=== PATIENT | male | born 1990 ===

== ENCOUNTER 2018-02-19 13:25 | Emergency (ER) | payer SELFPAY ==
[2018-02-19 13:41] VITALS: BP 155/89
--- NOTE | 2018-02-19 13:51 | UC ---
Abdominal Pain Male HPI - HPI Summary HPI Summary: 27 yo male presents with "tightness" to LLQ for the last 3-4 days. He tells me that he has a history of cerebral palsy and goes to the gym quite often to strengthen. Over the last 3-4 days has noticed some intermittent "tightness" to his LLQ with certain activities - especially after going to the gym. He has not taken anything OTC for his discomfort. Having a daily BM that has been regular for him - does not change his pain. He has been feeling well otherwise and denies fever, chills, recent illness, n/v/d/c, dysuria, testicular pain, or specific injury. Has not seen a PCP in over 10 years. He tells me that as a child he had may issues with abdominal hernias. - History of Current Complaint Chief Complaint: UCAbdominalPain Stated Complaint: STOMACH PAIN Time Seen by Provider: 02/19/18 13:51 Hx Obtained From: Patient Onset/Duration: Gradual Onset Severity Initially: Mild Severity Currently: Mild Pain Intensity: 1 Pain Scale Used: 0-10 Numeric - Allergies/Home Medications Allergies/Adverse Reactions: Allergies Allergy/AdvReac Type Severity Reaction Status Date / Time No Known Allergies Allergy Verified 02/19/18 13:41 Home Medications: Home Medications NK [No Home Medications Reported] 02/19/18 [History Confirmed 02/19/18] PMH/Surg Hx/FS Hx/Imm Hx - Additional Past Medical History Additional PMH: Cerebral palsy - Surgical History Surgical History: Yes Surgery Procedure, Year, and Place: 6 year old - tendons lengthened in legs. addenoidectomy - Family History Known Family History: Positive: None - Social History Occupation: Employed Full-time Lives: With Family Alcohol Use: Rare Substance Use Type: Marijuana Smoking Status (MU): Former Smoker When Did the Patient Quit Smoking/Using Tobacco: 2016 Review of Systems All Other Systems Reviewed And Are Negative: Yes Constitutional: Positive: Negative Skin: Positive: Negative Respiratory: Positive: Negative Cardiovascular: Positive: Negative Gastrointestinal: Positive: Abdominal Pain Genitourinary: Positive: Negative Motor: Positive: Negative Neurovascular: Positive: Negative Neurological: Positive: Negative Psychological: Positive: Negative Physical Exam - Summary Physical Exam Summary: GENERAL: NAD. WDWN. No pain distress. SKIN: No rashes, sores, lesions, or open wounds. NECK: Supple. Nontender. No lymphadenopathy. CHEST: CTAB. No r/r/w. No accessory muscle use. Breathing comfortably and in no distress. CV: RRR. Without m/r/g. Pulses intact. Cap refill <2seconds ABDOMEN: Soft. NTTP. No distention or guarding. No CVA tenderness. Bowel sounds present NEURO: Alert. PSYCH: Age appropriate behavior. Triage Information Reviewed: Yes Vital Signs: Initial Vital Signs Temp 100.2 F 02/19/18 13:31 Pulse 72 02/19/18 13:31 Resp 16 02/19/18 13:31 BP 155/89 02/19/18 13:31 Pulse Ox 100 02/19/18 13:31 Laboratory Tests 02/19/18 13:50 POC Urine Color Yellow POC Urine Clarity Clear POC Urine pH 7.0 POC Ur Specif [place] 1.015 POC Urine Protein Negative POC Ur Glucose (UA) Negative POC Urine Ketones Negative POC Urine Blood Negative POC Urine Nitrite Negative POC Urine Bilirubin Negative POC Urine Urobilinogen 0.2 POC U Leukocyte Esteras Negative Vital Signs: Temp Pulse Resp BP Pulse Ox 99.8 F 72 16 155/89 100 02/19/18 14:03 02/19/18 13:31 02/19/18 13:31 02/19/18 13:31 02/19/18 13:31 Vital Signs Reviewed: Yes Male Genital Exam: Positive: Other - Left inguinal region just superior to inguinal ligament with possible small bulge during valsalva. This is area of "tightness" described by pt. Spontaneously reduces.. Negative: Lesions, Scrotum Tenderness (R), Scrotum Tenderness (L), Testicular Tenderness (R), Testicular Tenderness (L), Urethral Discharge Abd Pain Male Course/Dx - Course Course Of Treatment: Suspect inguinal hernia. Spontaneously reduces. Will draw for CBC and CMP and have pt f/u with [facility] for lab f/u, finding a PCP , and further eval of likely hernia. - Differential Dx/Clinical Impression Provider Diagnosis: Direct inguinal hernia Discharge - Sign-Out/Discharge Documenting (check all that apply): Patient Departure All imaging exams completed and their final reports reviewed: No Studies - Discharge Plan Condition: Stable Disposition: HOME Patient Education Materials: Inguinal Hernia (ED) Forms: *Work Release Referrals: No Primary Care Phys,NOPCP [Primary Care Provider] - [facility] [Outside] - As Soon As Possible Additional Instructions: If you develop a fever, shortness of breath, chest pain, new or worsening symptoms - please call your PCP or go to the ED. Your blood pressure was high at todays visit. Please see your primary provider within 4 weeks for recheck and re-evaluation. Please follow up with the [facility] clinic at the number below as soon as possible for further evaluation of your left lower quadrant pain and suspected hernia. - Billing Disposition and Condition Condition: STABLE Disposition: Home - Attestation Statements Provider Attestation: Per institutional requirements, I have reviewed the chart, however, I was not consulted specifically or made aware of this patient by the midlevel provider. I did not personally evaluate, interact with , or disposition this patient.
[2018-02-20 10:03] LABS: ABS Basophils 0 10^3/ul (0-0.2); ABS Eosinophils 0.1 10^3/ul (0-0.6); ABS Lymphocytes 1.5 10^3/ul (1.0-4.8); ABS Monocytes 0.3 10^3/ul (0-0.8); ABS Neutrophils 2.7 10^3/ul (1.5-7.7); ABS Nucleated RBC 0 10^3/ul; Hematocrit 47 % (42-52); Lymphocyte % 32.1 %; Mean Corpuscular HGB Conc 34 g/dl (31-36); Mean Corpuscular Hemoglobin 30 pg (27-31); Mean Corpuscular Volume 87 fL (80-94); Nucleated Red Blood Cells % 0.2; Platelet Count 227 10^3/ul (150-450); Red Blood Count 5.41 10^6/ul (4.00-5.40); Red Cell Distribution Width 12 % (10.5-15); White Blood Count 4.8 10^3/ul (3.5-10.8)
[2018-02-20 10:15] LABS: Albumin 4.7 g/dL (3.2-5.2); Albumin/Globulin Ratio 1.7 (1-3); BUN/Creatinine Ratio 24.2 (8-20); Calcium 9.6 mg/dL (8.6-10.3); EGFR Non-African American 142.7 (>60); Globulin 2.7 g/dL (2-4); Potassium 3.9 mmol/L (3.5-5.0); Total Bilirubin 2.7 mg/dL (0.2-1.0); Total Protein 7.4 g/dL (6.4-8.9)
--- NOTE | 2018-02-20 15:01 | UC ---
- Progress Note Progress Note: Labs with mildly elevated bilirubin. Likely not related to pt's symptoms and reason for visit. Advised to f/u with [facility] at last OV No change Course/Dx - Diagnoses Provider Diagnoses: Direct inguinal hernia Discharge - Sign-Out/Discharge Documenting (check all that apply): Post-Discharge Follow Up All imaging exams completed and their final reports reviewed: No Studies - Discharge Plan Condition: Stable Disposition: HOME Patient Education Materials: Inguinal Hernia (ED) Forms: *Work Release Referrals: [facility] [Outside] - As Soon As Possible No Primary Care Phys,NOPCP [Primary Care Provider] - Additional Instructions: If you develop a fever, shortness of breath, chest pain, new or worsening symptoms - please call your PCP or go to the ED. Your blood pressure was high at todays visit. Please see your primary provider within 4 weeks for recheck and re-evaluation. Please follow up with the [facility] clinic at the number below as soon as possible for further evaluation of your left lower quadrant pain and suspected hernia. - Billing Disposition and Condition Condition: STABLE Disposition: Home
== END 2018-02-19 14:15 | disposition home or self-care (01) ==
LOC: UCEAST 13:25
DX: K40.90 Unilateral inguinal hernia, without obstruction or gangrene, not specified as recurrent (principal); G80.9 Cerebral palsy, unspecified; Z87.891 Personal history of nicotine dependence
CPT/HCPCS: 36415; 80053; 81003; 85025; 99201; G0463